=== PATIENT | female | born 1945 | race Caucasian/White ===

== ENCOUNTER 2016-08-28 12:00 | Inpatient (IN) | payer OTHER ==
[~2016-08-28] VITALS: Ht 157.5 cm; Wt 62.8 kg
--- NOTE | ~2016-08-28 | HC ---
[facility] [place] [address] CONSULTATION Name: BRADLEY MENCHACA Room #: 506-1 ADM IN M.R.#: [id number] Admission: 08/28/16 Attend Phys: Darrell Saucedo MD Discharge: Date of : 45 Report #: [id number] THIS REPORT FOR: //name// CC: Darrell Saucedo [place] [employer]ia DATE OF SERVICE: 08/29/2016 NEUROBEHAVIORAL STATUS EXAM AGE: 71. ATTENDING PHYSICIAN: Darrell Saucedo M.D [employer] CONCRETE BATCHER: Tonio Shaver, PhD CLINICAL PRESENTATION: The patient is a 71-year-old female admitted to the rehabilitation unit at [facility] for comprehensive inpatient rehabilitation program to improve functional mobility and activities of daily living and self-care and mental status secondary to a cerebrovascular accident. She was living at home with her when she experienced some dysarthria and mental status changes. She was subsequently brought to the hospital and diagnosed with an acute left thalamic internal capsular stroke. 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 History of seizure disorder and left hand contractures also reported. A complete description of her medical condition and history and medications can be found in her medical record. Neuropsychological consultation was requested to provide assistance in the assessment of cognitive and emotional status and to provide recommendations and services. PERSONAL AND SOCIAL HISTORY: She is without children. Patient has one brother. 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 There is no family history of dementia or mental disorder that was reported. TECHNIQUES UTILIZED: Clinical interview, review of medical records, staff consultation and behavioral observation, mini mental status exam 2 standard version and interview with and clock drawing. EXAMINATION FINDINGS: The patient was alert and oriented during the assessment. She was unable to accurately describe the reason for her [facility] [address] [place] [address] CONSULTATION Name: BRADLEY MENCHACA Room #: 506-1 ADM IN M.R.#: [id number] Admission: 08/28/16 Attend Phys: Darrell Saucedo MD Discharge: Date of : 45 Report #: [id number] hospitalization. She does not present with aphasia. There is no report of auditory or visual hallucinations. Her thoughts were tangential and required assistance to maintain organization. She was intermittently tearful during the assessment. A long standing history of treatment for anxiety and depression is reported. Intermittent panic attacks were reported. Her performance on the MMSE 2 brief version was within normal limits with 14 of 16 correct, which is a T score of 41. Her performance on the MMSE 2 standard version is 26 of 30, which is a T score of 42. Impairment with sustained concentration and visual - motor constrction was noted. Her is very supportive and describes her as having needed increasingly more assistance with activities of daily living for the last couple of years. 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 Psychological counseling to assist with adjustment. Her should be included in counseling to assist with developement and implementation of compensatory strategies for areas of decreased functioning. He may be overfunctioning for her at times. Outpatient neuropsychological testing is indicated to assist with the identification of deficits and implementation of recommendations to assist with adjustment. Thank you very much for allowing me to provide the consultation on this patient. <ELECTRONICALLY SIGNED> By: Tonio Shaver, PhD 08/30/16 1603 [id number] Tonio Shaver, PhD /nt
--- NOTE | ~2016-08-28 | HC ---
[facility] [place] [address] CONSULTATION Name: BRADLEY MENCHACA Room #: 506-1 ADM IN M.R.#: [id number] Admission: 08/28/16 Attend Phys: Darrell Saucedo MD Discharge: Date of : 45 Report #: [id number] THIS REPORT FOR: //name// CC: Darrell Barkley DATE OF SERVICE: 09/15/2016 HISTORY OF PRESENT ILLNESS: This lady has been admitted for recovery from cerebrovascular accident. She was set to discharge on Wednesday. She has taken a turn emotional here in the last 24-48 hours. She has refused meals. She is fixated on all the deficits from the first stroke as it occurred prior to this one. She has been somewhat hopeless and helpless and notes "I which I not survived the first stroke." However, she denies any thoughts or plans to harm herself at this time. She complains of anxiety, but admits that panic attacks like the one she had earlier today are very short "only last few minutes." PAST PSYCHIATRIC HISTORY: She has been on medications Zoloft. She has been on this medication a while it appears she does not want an increase in this medication. She is fearful of benzodiazepines. ALLERGIES: PENICILLIN, SULFA. FAMILY HISTORY: Noncontributory. PAST MEDICAL HISTORY: History of cerebrovascular accident, significant physical deficits, primarily on the left side from stroke that occurred prior to this more recent one, which was the left thalamic internal counselor. She also has a history of seizure disorder, takes Topamax for this. ALLERGIES: PENICILLIN, SULFA. CURRENT MEDICATIONS: Include modafinil 100 daily I just started this, MiraLax 17 grams daily, Maxzide 25 daily, Zoloft 50 daily, multivitamin 1 daily, B12 1000 mcg daily, Plavix 75 daily, ascorbic acid 500 daily, Topamax 50 twice daily and Lipitor 40 at bedtime. MENTAL STATUS EXAM: female, casually dressed, ectomorphic build, depressed, anxious, movements, passive thoughts of , no suicidal ideation, intent or plan. No homicidal ideation. Insight and judgment decreased. 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 She is . No active substance abuse issues. DIAGNOSES: [facility] [address] [place] [address] CONSULTATION Name: BRADLEY MENCHACA Room #: [facility]-1 [facility] IN ..#: [id number] Admission: 08/28/16 Attend Phys: Darrell Saucedo MD Discharge: Date of : 45 Report #: [id number] AXIS I: Major depressive disorder, recurrent, severe. AXIS II: Deferred. AXIS III: Cerebrovascular accident, history of seizure disorder. AXIS IV: Severe. AXIS V: 30. RECOMMENDATIONS: The patient does not want to increase Zoloft at this time. I did point out that she had been on this medication a while, so she may possibly benefit from an increase. She also did not want to be on a benzodiazepine for her anxiety and quite honestly for panic attacks that last only a few minutes that benzodiazepine like Xanax or Ativan would probably not be of significant benefit, but would have risks of cognitive slowing falls, etc. She is open in a trial of a mild stimulant and we are going to start on modafinil at 100 mg a day. We will continue to follow up offer support and monitor response to medication. By: [id number] Gil Lares MD /nt
--- NOTE | ~2016-08-28 | PLAN ---
[facility] [place] [address] REHAB UNIT PLAN OF CARE Name: BRADLEY MENCHACA Room #: 506-1 ADM IN M.R.#: [id number] Admission: 08/28/16 Attend Phys: Darrell Saucedo MD Discharge: Date of : 45 Report #: [id number] THIS REPORT FOR: //name// CC: Darrell Barkley DATE OF SERVICE: 08/31/2016 The patient is seen back today in followup. She is pleasant, in no distress. Last recorded temperature 100.5, pulse 105, respirations 20, blood pressure 128/76. She is in no distress. No calf swelling. Transfers have been mod assist. She has ambulated 4 feet in the parallel bars with mod assist. In occupational therapy, she is dependent for lower body dressing, max assist upper body dressing. In speech therapy, she has mild to moderate expressive deficits. ASSESSMENT: 1. Acute left thalamic internal capsular stroke. 2. Dysphagia, on thickened liquid diet, now mechanical soft nectar thick 3. Dysarthria. 4. Old right middle cerebral artery cerebrovascular accident with encephalomalacia and left upper extremity spastic plegia and left lower extremity spastic paresis. 5. Premorbid cane ambulator with an Aircast brace that was utilized for the left ankle. 6. History of seizure disorder. 7. Premorbid left hand contracture. PLAN: The overall plan of care is based on the preadmission screen, post-admission physician evaluation and information garnered from therapy assessments. 1. Estimated length of stay is likely going to be fairly long as she is at a significantly lower functional level and her premorbid status. 2. Medical prognosis is reasonably good. 3. Anticipated interventions include the interdisciplinary acute inpatient rehabilitation program with PT, OT and speech, rehabilitation nursing assisting regarding medication management, skin care prophylaxis, bowel and bladder issues and nursing education. Case management will be involved as well as the interdisciplinary rehabilitation team. The computer systems consultant physicians will continue to follow. 4. Anticipated functional outcomes would be for the patient ideally to get back to the point where she is able to ambulate and transfer herself, improve her swallow, become more independent with ADLs and improve her communication with her dysarthria. 5. Discharge destination will be back home with . 6. Expected therapy by discipline includes PT, OT and speech 1 hour per day [address] [address] REHAB UNIT PLAN OF CARE Name: BRADLEY MENCHACA Room #: 506-1 ADM IN [facility].#: [id number] Admission: 08/28/16 Attend Phys: Darrell Saucedo MD Discharge: Date of : 45 Report #: [id number] each 5 days a week throughout the duration of the acute inpatient rehabilitation stay. <ELECTRONICALLY SIGNED> By: Darrell Saucdeo MD 09/01/16 1205 [id number] Darrell Saucedo MD /nt
--- NOTE | ~2016-08-28 | H ---
[facility] [place] [address] HISTORY AND PHYSICAL Name: BRADLEY MENCHACA Room #: 506-1 ADM IN M.R.#: [id number] Admission: 08/28/16 Attend Phys: Darrell Saucedo MD Discharge: Date of : 45 Report #: [id number] THIS REPORT FOR: //name// CC: Darrell Barkley DATE OF SERVICE: 08/28/2016 HISTORY OF PRESENT ILLNESS: The patient is a 71-year-old white female with an old large CVA in 1997, right middle cerebral artery with left hemiparesis. She was a premorbid cane ambulator and has some left hand chronic contracture from the old stroke. She was living in the community with her , ambulating around the house and doing well for years. She was admitted acutely with slurred speech and confusion and decreased function. She had a fall at home. Upon admission, she underwent an MRI scan, which revealed an acute left thalamic internal capsular stroke. She also had an unresponsive episode, noted to be a syncopal episode on August 25. Neurology has been involved. She has been changed to Plavix. EEG showed no evidence of a seizure disorder. She does have dysphagia and is on pureed nectar thickened liquids. She was felt to be ready and has now been admitted for acute in-hospital inpatient rehabilitation. PAST MEDICAL HISTORY: Includes a seizure disorder. She has a left hand contracture. She has the old stroke with the residual left hemiparesis. She mostly has left upper extremity plegia with left hemiparesis in the lower extremity. PAST SURGICAL HISTORY: Includes kidney stone removal. ALLERGIES: PENICILLIN AND SULFA. MEDICATIONS: Please see the full medication listing. SOCIAL HISTORY: Lives with her in a house. She premorbidly utilized a single-point cane. helps somewhat with ADLs. works during the day. The patient is otherwise by herself in the evening. There is a brother and sister on area as well as 2 nieces. REVIEW OF SYSTEMS: Did not offer any current complaints of chest pain, shortness of breath, abdominal discomfort. Denied any focal extremity pain complaints. notes that she has been anxious and afraid of falling and has lost confidence even prior to this acute stroke. She has had problems with this for the past several months. PHYSICAL EXAMINATION: GENERAL: A 71-year-old white female, in no obvious distress. VITAL SIGNS: Last recorded temperature 98.3, pulse 80, respirations 18, and [facility] [address] [place] [address] HISTORY AND PHYSICAL Name: BRADLEY MENCHACA Room #: 506-1 [facility] IN [facility]#: [id number] Admission: 08/28/16 Attend Phys: Darrell Saucedo MD Discharge: Date of : 45 Report #: [id number] blood pressure 132/71. NEUROLOGIC: She is alert, pleasant, obvious significant dysarthria speech. HEENT: Reveals left facial droop. EOMs otherwise appeared to be full and I could not detect any obvious visual field neglect. CHEST: Sounded clear to auscultation. CARDIOVASCULAR: Regular rate and rhythm. ABDOMEN: Bowel sounds positive, nontender. GENITOURINARY AND RECTAL: Reveals Schaffer catheter, which is to be removed. EXTREMITIES: She has dense left upper extremity weakness. Some limited movement a grade 1-2/5 with gross movement of the left upper extremity and some slight flexion of the elbow and forearm. The left hand is in a fisted position with chronic contracture and flexion, but I could generally extend out the thumb and fingers close to neutral as well as the wrist close to neutral. She does have the left elbow flexion contracture with about 15-20 degrees less full extension. Right upper extremity revealed functional range of motion with strength a grade 4-/5. She did reasonably well with [id number]. Left lower extremity revealed increased tone 3+ with strength a grade 3+ to 4-/5. Right lower extremity strength is a grade 4- to 4/5. She does have some increase in her DTRs left lower extremity, but right lower extremity appeared closer to normal. Sensory examination decreased left upper extremity, more symmetric both lower extremities. Functionally, she has progressed and prior to coming to rehabilitation, improved to mod assist with sit to stand and did take 6 steps with mod assist. ASSESSMENT: 1. Acute left thalamic internal capsular stroke. 2. Dysphagia on pureed nectar thickened liquid diet. 3. Unresponsive episode with noted syncopal event. 4. Dysarthria. 5. Old right middle cerebral artery infarct with encephalomalacia and left upper extremity spastic plegia and left lower extremities spastic paresis. 6. Premorbid cane ambulator with an Aircast brace that was utilized for her left ankle. 7. History of seizure disorder. 8. Premorbid left hand contracture. PLAN: The patient is admitted for acute in-hospital inpatient rehabilitation. From a post-admission physician evaluation perspective, there are no relevant changes since the preadmission screening. Please see the above review of prior and current medical and functional conditions and comorbidities. Please see the patient's prior and current functional status. As far as risk of complications, she does have multiple medical comorbidities as noted above. The initial plan of care involves the interdisciplinary acute inpatient rehabilitation program with the goal of maximizing the patient's functional independence, so that she can hopefully return back to her prior living situation. Measurable functional goals would be for her to improve with her basic mobility and transfers, gait, [facility] [address] [place] [address] HISTORY AND PHYSICAL Name: BRADLEY MENCHACA Room #: 506-1 ADM IN M.R.#: [id number] Admission: 08/28/16 Attend Phys: Darrell Saucedo MD Discharge: Date of : 45 Report #: [id number] ADLs and swallowing, so that she can get back home with her . Ideally, we can get her back up with the cane again. Prognosis is reasonably good with estimated length of stay likely fairly long with the fact that she has the old CVA with residual, now complicated with the new CVA. Potential barriers would include her functional deficits and her prior stroke. Discussion with who is very prorehab and encouraging the patient as far as improving her functional maximum. <ELECTRONICALLY SIGNED> By: Darrell Saucedo MD 09/01/16 1205 [id number] 1555 Darrell Saucedo MD /nt
[~2016-08-28 12:00] MED LIST: ASPIRIN325 PO; B12INJ PO; BACLOFEN 10MG T10 MG PO; CALCIUM 600 +1 EAC1 PO; DAILY MULTIPLE1 EACH PO; DETROL2 M1 PO; EXCEDRIN CAPLE1 EACH PO; FISH OIL 1,001000 M2 PO; HYDROCODONE-AP1 EAC6 PO; LOVASTATIN 20 M20 MG PO; MAXZIDE-25 MG1 EACH PO; MIRALAX17 GM PO; TOPAMAX100 MG PO; VITAMINC500 PO; ZOLOFT25 MG PO
[2016-08-28 17:26] VITALS: BP 103/51
[2016-08-29 03:38] VITALS: BP 128/74
[2016-08-29 11:36] LABS: HEMATOCRIT 44.4 % (37.0-47.0); HEMOGLOBIN 14.5 gm/dL (12.0-15.0); MCH 29.9 pg (26.0-34.0); MCHC 32.6 g/dL (28.0-37.0); MCV 91.6 fL (80.0-100.0); RBC 4.84 mil/uL (4.20-5.00); RDW 13.2 % (10.5-14.5)
[2016-08-29 11:43] LABS: CALCIUM 9.8 mg/dL (8.5-10.1); CREATININE 0.8 mg/dL (0.6-1.3); POTASSIUM 3.5 mmol/L (3.5-5.1)
[2016-08-29 15:30] VITALS: BP 120/69
[2016-08-30 05:15] VITALS: BP 110/59
[2016-08-30 09:26] VITALS: BP 118/60
[2016-08-30 15:45] VITALS: BP 138/83
[2016-08-31 03:42] VITALS: BP 128/76
[2016-08-31 15:40] VITALS: BP 123/71
[2016-09-01 04:28] VITALS: BP 126/68
[2016-09-01 15:09] VITALS: BP 95/63
[2016-09-02 05:14] VITALS: BP 116/75
[2016-09-02 08:46] VITALS: BP 120/58
[2016-09-02 15:30] VITALS: BP 128/80
[2016-09-03 06:27] VITALS: BP 121/76
[2016-09-03 16:00] VITALS: BP 115/65
[2016-09-04 04:58] VITALS: BP 117/60
[2016-09-04 17:22] VITALS: BP 128/82
[2016-09-05 06:10] VITALS: BP 113/67
[2016-09-05 16:20] VITALS: BP 103/78
[2016-09-06 05:28] VITALS: BP 116/65
[2016-09-06 16:21] VITALS: BP 115/73
[2016-09-07 05:23] VITALS: BP 102/53
[2016-09-07 05:26] LABS: HEMOGLOBIN 14.3 gm/dL (12.0-15.0); MCHC 33.9 g/dL (28.0-37.0); MCV 88.5 fL (80.0-100.0); RBC 4.75 mil/uL (4.20-5.00); RDW 12.9 % (10.5-14.5)
[2016-09-07 05:45] LABS: CALCIUM 10.3 mg/dL (8.5-10.1); CREATININE 0.9 mg/dL (0.6-1.3); POTASSIUM 3.2 mmol/L (3.5-5.1)
[2016-09-07 09:08] VITALS: BP 114/71
[2016-09-07 16:00] VITALS: BP 104/51
[2016-09-08 04:00] VITALS: BP 129/72
[2016-09-08 04:58] LABS: ABSOLUTE NEUTROPHILS 9.1 thou/uL (1.4-8.2); BASOPHILS 0.8 % (0.0-2.0); EOSINOPHILS 2.5 % (0.0-3.0); HEMATOCRIT 41.4 % (37.0-47.0); HEMOGLOBIN 13.9 gm/dL (12.0-15.0); LYMPHOCYTES 16.3 % (24.0-44.0); MCH 29.7 pg (26.0-34.0); MCHC 33.5 g/dL (28.0-37.0); MCV 88.5 fL (80.0-100.0); MONOCYTES 6.8 % (1.0-8.0); PLATELET COUNT 263 thou/uL (150-400); POLYS 73.6 % (36.0-66.0); RBC 4.68 mil/uL (4.20-5.00); RDW 12.7 % (10.5-14.5); WBC 12.4 thou/uL (4.0-11.0)
[2016-09-08 05:01] LABS: MANUAL DIFF NO
[2016-09-08 05:10] LABS: ALBUMIN 3.8 g/dL (3.4-5.0); CALCIUM 10.1 mg/dL (8.5-10.1); POTASSIUM 3.3 mmol/L (3.5-5.1); TOTAL BILIRUBIN 0.4 mg/dL (<0.1-1.0); TOTAL PROTEIN 6.9 g/dL (6.4-8.2)
[2016-09-08 09:55] VITALS: BP 107/60
[2016-09-08 15:30] VITALS: BP 130/68
[2016-09-09 04:58] VITALS: BP 119/51
[2016-09-09 06:37] LABS: MAGNESIUM 2.1 mg/dL (1.8-2.4); POTASSIUM 3.2 mmol/L (3.5-5.1)
[2016-09-10 05:22] VITALS: BP 97/56
[2016-09-10 16:00] VITALS: BP 96/50
[2016-09-11 03:34] VITALS: BP 119/81
[2016-09-11 08:00] VITALS: BP 99/60
[2016-09-11 16:10] VITALS: BP 111/80
[2016-09-12 06:00] VITALS: BP 119/67
[2016-09-12 16:00] VITALS: BP 108/62
[2016-09-13 04:55] VITALS: BP 102/59
[2016-09-13 18:13] VITALS: BP 134/52
[2016-09-14 05:00] VITALS: BP 94/48
[2016-09-14 11:22] VITALS: BP 95/73
[2016-09-14 11:23] VITALS: BP 103/74
[2016-09-14 11:25] VITALS: BP 100/67
[2016-09-14 15:57] VITALS: BP 114/75
[2016-09-15 05:35] VITALS: BP 96/46
[2016-09-15 16:02] VITALS: BP 111/68
[2016-09-16 06:00] VITALS: BP 145/88
[2016-09-16 11:34] LABS: URINE BILIRUBIN NEGATIVE (Negative); URINE BLOOD NEGATIVE (Negative); URINE COLOR YELLOW; URINE GLUCOSE-RANDOM* NEGATIVE (Negative); URINE KETONES NEGATIVE (Negative); URINE LEUKOCYTES-REFLEX 2+ (Negative); URINE PROTEIN (DIPSTICK) NEGATIVE (Negative); URINE SPECIFIC GRAVITY 1.015 (1.003-1.035); URINE UROBILINOGEN 0.2 E.U./dl (0.2-1.0)
[2016-09-16 11:44] LABS: CASTS None Seen /LPF (None Seen); CRYSTALS None Seen /LPF (None Seen); SQUAMOUS 0-3 Few /LPF (0-3); URINE RBC None Seen /HPF (0-2)
[2016-09-16 15:30] VITALS: BP 110/70
[2016-09-17 04:54] VITALS: BP 112/60
[2016-09-17 05:18] LABS: BASOPHILS 0.6 % (0.0-2.0); EOSINOPHILS 2.9 % (0.0-3.0); HEMATOCRIT 38.1 % (37.0-47.0); HEMOGLOBIN 13.5 gm/dL (12.0-15.0); MCH 31.2 pg (26.0-34.0); MCHC 35.4 g/dL (28.0-37.0); MCV 88.2 fL (80.0-100.0); MONOCYTES 6.9 % (1.0-8.0); PLATELET COUNT 256 thou/uL (150-400); POLYS 72.6 % (36.0-66.0); RBC 4.32 mil/uL (4.20-5.00); RDW 12.9 % (10.5-14.5); WBC 9.6 thou/uL (4.0-11.0)
[2016-09-17 05:26] LABS: MANUAL DIFF NO
[2016-09-17 05:59] LABS: ALBUMIN 3.3 g/dL (3.4-5.0); CALCIUM 9.8 mg/dL (8.5-10.1); CREATININE 1.1 mg/dL (0.6-1.3); MAGNESIUM 2.2 mg/dL (1.8-2.4); POTASSIUM 3.2 mmol/L (3.5-5.1); TOTAL BILIRUBIN 0.3 mg/dL (<0.1-1.0); TOTAL PROTEIN 6.7 g/dL (6.4-8.2)
[2016-09-17] MEDS ORDERED: PLAVIX 75 MG TA75 M1 PO (10:13)
[2016-09-17] MEDS ORDERED: ARTIFICIAL TEAR15 M1 OPHTHALMIC (10:13)
[2016-09-17] MEDS ORDERED: CIPRO500 MG PO (10:13)
[2016-09-17] MEDS ORDERED: PROTONIX40 M1 PO (10:13)
[2016-09-17] MEDS ORDERED: PROBIOTIC1 EAC1 PO (10:13)
[2016-09-17 15:45] VITALS: BP 113/69
[2016-09-17 16:30] VITALS: BP 113/69
[2016-09-17 16:32] VITALS: BP 113/69
[2016-09-18 05:25] VITALS: BP 104/62
[2016-09-18 09:54] LABS: CALCIUM 9.7 mg/dL (8.5-10.1); POTASSIUM 3.5 mmol/L (3.5-5.1)
[2016-09-18] MEDS ORDERED: PROVIGIL 100 M100 M1 PO (13:34)
[2016-09-18] MEDS ORDERED: PROVIGIL 100 M100 MG PO (14:01)
== END 2016-09-18 18:41 | disposition home health service (06) | DRG 64 ==
PROVIDERS: Internal Medicine; Nurse Practitioner; Nurse Practitioner Family; Physical Medicine & Rehabilitation; Registered Nurse
DX: I63.9 Cerebral infarction, unspecified (principal); G93.40 Encephalopathy, unspecified; F01.51 Vascular dementia, unspecified severity, with behavioral disturbance; N39.0 Urinary tract infection, site not specified; R47.1 Dysarthria and anarthria; G40.909 Epilepsy, unspecified, not intractable, without status epilepticus; M24.542 Contracture, left hand; R33.9 Retention of urine, unspecified; F41.9 Anxiety disorder, unspecified; N18.9 Chronic kidney disease, unspecified; I12.9 Hypertensive chronic kidney disease with stage 1 through stage 4 chronic kidney disease, or unspecified chronic kidney disease; F34.1 Dysthymic disorder; R13.10 Dysphagia, unspecified; S05.10XA Contusion of eyeball and orbital tissues, unspecified eye, initial encounter; W19.XXXA Unspecified fall, initial encounter; E78.5 Hyperlipidemia, unspecified; R79.89 Other specified abnormal findings of blood chemistry; E87.6 Hypokalemia; L30.9 Dermatitis, unspecified; Z88.0 Allergy status to penicillin; Z88.2 Allergy status to sulfonamides; Z79.82 Long term (current) use of aspirin; Z79.899 Other long term (current) drug therapy
CPT/HCPCS: 10112

== ENCOUNTER 2016-12-29 16:30 | Inpatient (IN) | payer OTHER ==
[~2016-12-29] VITALS: Ht 157.5 cm; Wt 63.5 kg
[~2016-12-29 16:30] MED LIST changes: +ARTIFICIAL TEAR15 M1 OPHTHALMIC; +CIPRO500 MG PO; +PLAVIX 75 MG TA75 M1 PO; +PROBIOTIC1 EAC1 PO; +PROTONIX40 M1 PO; +PROVIGIL 100 M100 M1 PO; +PROVIGIL 100 M100 MG PO
[2016-12-29 16:34] VITALS: BP 143/79
[2016-12-29] MEDS ORDERED: TOLTERODINE TART4 MG PO (17:49)
[2016-12-29] MEDS ORDERED: XANAX 0.25 MG0.25 MG PO (17:49)
[2016-12-29] MEDS ORDERED: HYDROCODONE-AP1 EAC6 PO (17:50)
[2016-12-29 18:48] LABS: HEMATOCRIT 42.3 % (37.0-47.0); HEMOGLOBIN 14.1 gm/dL (12.0-15.0); MANUAL DIFF YES; MCH 29.7 pg (26.0-34.0); MCHC 33.4 g/dL (28.0-37.0); MCV 88.9 fL (80.0-100.0); PLATELET COUNT 184 thou/uL (150-400); RBC 4.76 mil/uL (4.20-5.00); RDW 13.5 % (10.5-14.5); WBC 13.1 thou/uL (4.0-11.0)
[2016-12-29 18:57] LABS: CALCIUM 9.6 mg/dL (8.5-10.1); CREATININE 0.8 mg/dL (0.6-1.0)
[2016-12-29 18:59] LABS: POTASSIUM 4.4 mmol/L (3.5-5.1)
[2016-12-29 19:03] LABS: APTT 25.4 Seconds (24.5-32.8); PROTIME 10.5 Seconds (9.3-11.4)
[2016-12-29 19:17] LABS: TSH 2.324 uIU/mL (0.358-3.740)
[2016-12-29 19:23] LABS: ABSOLUTE NEUTROPHILS 11.9 thou/uL (1.4-8.2); TOTAL CELL COUNT 100
[2016-12-29 20:00] VITALS: BP 119/68
[2016-12-30 00:34] VITALS: BP 99/62
[2016-12-30 04:06] VITALS: BP 111/70
[2016-12-30 06:16] LABS: ABSOLUTE NEUTROPHILS 5.6 thou/uL (1.4-8.2); BASOPHILS 0.3 % (0.0-2.0); EOSINOPHILS 1.6 % (0.0-3.0); HEMATOCRIT 40.1 % (37.0-47.0); HEMOGLOBIN 13.3 gm/dL (12.0-15.0); MCH 29.6 pg (26.0-34.0); MCHC 33.1 g/dL (28.0-37.0); MCV 89.5 fL (80.0-100.0); MONOCYTES 8.7 % (1.0-8.0); PLATELET COUNT 187 thou/uL (150-400); POLYS 72.4 % (36.0-66.0); RBC 4.48 mil/uL (4.20-5.00); RDW 13.6 % (10.5-14.5); WBC 7.7 thou/uL (4.0-11.0)
[2016-12-30 06:20] LABS: MANUAL DIFF NO
[2016-12-30 06:29] LABS: CALCIUM 9.6 mg/dL (8.5-10.1); CREATININE 0.9 mg/dL (0.6-1.0); POTASSIUM 3.5 mmol/L (3.5-5.1)
[2016-12-30 08:58] VITALS: BP 108/54
[2016-12-30 17:46] VITALS: BP 104/62
[2016-12-30 19:47] VITALS: BP 95/56
[2016-12-31 04:57] VITALS: BP 117/60
[2016-12-31 07:40] VITALS: BP 123/77
[2016-12-31 15:43] VITALS: BP 113/64
[2016-12-31 19:49] VITALS: BP 118/59
[2017-01-01 04:18] VITALS: BP 148/80
[2017-01-01 04:50] LABS: ABSOLUTE NEUTROPHILS 6.3 thou/uL (1.4-8.2); BASOPHILS 0.5 % (0.0-2.0); EOSINOPHILS 2.5 % (0.0-3.0); HEMATOCRIT 40.2 % (37.0-47.0); HEMOGLOBIN 13.4 gm/dL (12.0-15.0); MANUAL DIFF NO; MCH 29.9 pg (26.0-34.0); MCHC 33.4 g/dL (28.0-37.0); MCV 89.6 fL (80.0-100.0); MONOCYTES 10.4 % (1.0-8.0); PLATELET COUNT 173 thou/uL (150-400); POLYS 68.6 % (36.0-66.0); RBC 4.49 mil/uL (4.20-5.00); RDW 13.6 % (10.5-14.5); WBC 9.2 thou/uL (4.0-11.0)
[2017-01-01 05:01] LABS: CALCIUM 9.2 mg/dL (8.5-10.1); CREATININE 0.8 mg/dL (0.6-1.0); POTASSIUM 3.9 mmol/L (3.5-5.1)
[2017-01-01 07:10] VITALS: BP 114/71
[2017-01-01 16:31] VITALS: BP 104/64
[2017-01-01 20:30] VITALS: BP 116/69
[2017-01-02 03:39] VITALS: BP 116/69
[2017-01-02 07:08] VITALS: BP 137/92
[2017-01-02 15:35] VITALS: BP 114/66
[2017-01-02 19:00] VITALS: BP 112/65
[2017-01-03 04:00] VITALS: BP 103/60
[2017-01-03 05:34] LABS: HEMATOCRIT 33.8 % (37.0-47.0); HEMOGLOBIN 11.5 gm/dL (12.0-15.0); MCH 30.2 pg (26.0-34.0); MCV 88.8 fL (80.0-100.0); RBC 3.81 mil/uL (4.20-5.00); RDW 13.3 % (10.5-14.5); WBC 7.2 thou/uL (4.0-11.0)
[2017-01-03 05:57] LABS: CALCIUM 9.6 mg/dL (8.5-10.1); CREATININE 0.9 mg/dL (0.6-1.0); MAGNESIUM 1.8 mg/dL (1.8-2.4); POTASSIUM 3.7 mmol/L (3.5-5.1)
[2017-01-03 09:03] VITALS: BP 103/52
[2017-01-03 19:34] VITALS: BP 87/47
[2017-01-04 04:17] VITALS: BP 119/64
[2017-01-04 08:49] VITALS: BP 98/57
== END 2017-01-04 17:39 | DRG 563 ==
LOC: ER 16:30 → 4E 17:59 → EROBS 17:59 → 4E 19:43 → 5S 12-31 07:36
PROVIDERS: Emergency Medicine; Internal Medicine Endocrinology, Diabetes & Metabolism; Nurse Practitioner; Nurse Practitioner Family
PROC: 2W3RX1Z Immobilization of Left Lower Leg using Splint (ICD-10-PCS; principal; 2016-12-29)
DX: S82.392A Other fracture of lower end of left tibia, initial encounter for closed fracture (principal); I10 Essential (primary) hypertension; G40.909 Epilepsy, unspecified, not intractable, without status epilepticus; S82.832A Other fracture of upper and lower end of left fibula, initial encounter for closed fracture; E78.5 Hyperlipidemia, unspecified; G89.29 Other chronic pain; K21.9 Gastro-esophageal reflux disease without esophagitis; S00.93XA Contusion of unspecified part of head, initial encounter; Z66 Do not resuscitate; Y93.01 Activity, walking, marching and hiking; W18.39XA Other fall on same level, initial encounter; Z88.0 Allergy status to penicillin; Z87.442 Personal history of urinary calculi; Z88.2 Allergy status to sulfonamides; Z98.42 Cataract extraction status, left eye; Z98.41 Cataract extraction status, right eye; Z80.49 Family history of malignant neoplasm of other genital organs; Z79.899 Other long term (current) drug therapy; Y92.89 Other specified places as the place of occurrence of the external cause; Z83.3 Family history of diabetes mellitus; Z82.49 Family history of ischemic heart disease and other diseases of the circulatory system; Y99.8 Other external cause status; Z87.891 Personal history of nicotine dependence; I69.364 Other paralytic syndrome following cerebral infarction affecting left non-dominant side
CPT/HCPCS: 10783; 10785